=== PATIENT | male | born 1940 | race Caucasian/White ===

== ENCOUNTER → 2024-12-20 04:52 | Outpatient (REF) | payer MEDICARE, SELFPAY ==
[2024-12-20 06:42] LABS: International Normalized Ratio 1.9; Prothrombin Time (Protime)PT. 22.2 SECONDS (11.7-14.9)
== END ==
LOC: OLS.SW 04:52
PROVIDERS: Visit Provider Internal Medicine
DX: Z79.01 Long term (current) use of anticoagulants (principal)
CPT/HCPCS: 36415; 85610

== ENCOUNTER → 2024-12-21 05:00 | Outpatient (REF) | payer MEDICARE, SELFPAY ==
[2024-12-21 10:08] LABS: Digoxin Level 1.02 ng/mL (0.80-2.00)
== END ==
LOC: OLS.SW 05:00
PROVIDERS: Visit Provider Internal Medicine
DX: I48.91 Unspecified atrial fibrillation (principal); Z79.899 Other long term (current) drug therapy
CPT/HCPCS: 36415; 80162

== ENCOUNTER → 2025-01-01 04:00 | Outpatient (REF) | payer MEDICARE, SELFPAY ==
[2025-01-01 08:32] LABS: Prothrombin Time Fingerstick 22.5 SEC (11.7-14.9)
== END ==
LOC: OLS.SW 04:00
PROVIDERS: Referring Provider Internal Medicine; Visit Provider Internal Medicine
DX: Z86.711 Personal history of pulmonary embolism (principal)
CPT/HCPCS: 36416; 85610